=== PATIENT | female | born 1970 | race African-American/Black ===

== ENCOUNTER → 2019-06-17 | Outpatient (CLI) | payer BC ==
--- NOTE | 2019-06-17 17:03 | KCIC ---
PA and lateral chest. HISTORY: Cough PA and lateral views were taken of the chest. Lungs are free of confluent infiltrates. Heart is normal in size. There is no pleural effusion. IMPRESSION: 1. No acute infiltrates. Electronically signed by: Tobias Yuen MD (06/17/2019 5:00 PM) [id number]
== END | disposition home or self-care (01) ==
LOC: KCIC 15:06
PROVIDERS: ATTEND Nurse Practitioner Gerontology
DX: R05 Cough (principal)
CPT/HCPCS: 71046

== ENCOUNTER → 2021-07-16 | Outpatient (CLI) | payer BC ==
--- NOTE | 2021-07-16 11:43 | KCIC ---
EXAMINATION: XR CHEST 2V CLINICAL HISTORY: Cough for three weeks, has been on meds. EXAM DATE/TIME: 07/16/2021 10:36 AM COMPARISON: 06/17/2019 FINDINGS: Lines, Tubes, and Devices: None. Cardiomediastinal Silhouette: Within normal limits. Lungs and Pleura: Minimal patchy opacities in the right lung base, possibly subsegmental atelectasis. No evidence of pleural effusion. Pulmonary vasculature unremarkable. Bones and Soft Tissues: No acute osseous abnormality. IMPRESSION: Minimal right basilar opacities, possibly subsegmental atelectasis. There is otherwise no evidence of acute cardiopulmonary abnormality or significant interval change. Electronically signed by: Laureano Mckinnon DO (07/16/2021 11:40 AM) [id number]
== END ==
LOC: KCIC 10:33
PROVIDERS: ATTEND Family Medicine
DX: R05.9 Cough, unspecified (principal)
CPT/HCPCS: 71046